=== PATIENT | female | born 1955 | race Caucasian/White ===

== ENCOUNTER 2018-02-15 06:06 | Inpatient (IN) ==
--- NOTE | 2018-02-14 15:16 | Anesthesia Evaluation PreOp ---
Date of Encounter: 02/15/18 Time of Encounter: 07:06 - Past History Planned Operation: left CEA Cardiac History: HTN, Hyperlipidemia, Cardiac Surgery (3 vessel CABG 2016), Other (PAD) Pulmonary History: Denies Any Significant HX PROGRAM DEVELOPER History: CVA, Other (retinopathy) Other Medical History: Renal (CKD stage 4), Diabetes Type II Anesthesia History: Past Anesthesia (CABG, tonsils, C/S x2), Problems (has severe emergence delirium, ususally requires restraints) Alcohol Use: none Drug use: none Medications and Allergies Acetaminophen [Tylenol] 1,000 mg PO Q6HR PRN #90 tablet 03/13/17 [Rx] Aspirin [Ecotrin] 325 mg PO DAILY 03/13/17 [History] Atorvastatin [Lipitor] 40 mg PO DAILY 03/13/17 [History] Carvedilol [Coreg] 6.125 mg PO BID 03/13/17 [History] Cholecalciferol (Vitamin D3) [Vitamin D3] 1,000 unit PO DAILY 03/13/17 [History] Gabapentin [Neurontin] 300 mg PO BID 03/13/17 [History] Glimepiride [Amaryl] 4 mg PO DAILY 03/13/17 [History] Latanoprost [Xalatan] 1 drop BOTH EYES DAILY 03/13/17 [History] Levothyroxine Sodium [Levoxyl] 175 mcg PO DAILY 03/13/17 [History] Lisinopril-HCTZ 20-12.5 [Prinzide 20-12.5] 1 tab PO DAILY 03/13/17 [History] Oxybutynin [Ditropan] 5 mg PO DAILY 03/13/17 [History] Pioglitazone [Actos] 15 mg PO DAILY 03/13/17 [History] SitaGLIPtin [Januvia] 100 mg PO DAILY 03/13/17 [History] Trazodone HCl 100 mg PO HS 03/13/17 [History] amLODIPine [Norvasc] 5 mg PO DAILY 03/13/17 [History] Cilostazol 50 mg PO BID 02/15/18 [History] Allergy/AdvReac Type Severity Reaction Status Date / Time Amoxicillin AdvReac Rash Verified 02/15/18 06:37 - Meds/Allergy Pre-op Review Medications Reviewed: Yes Allergies Reviewed: Yes Beta Blockers on Current Med List: Yes If Beta Blockers taken, Date/Time (Last Dose taken): today 329 Anesthesia Results - Labs Laboratory Tests 02/13/18 02/13/18 08:19 08:19 Hgb 11.3 L Hct 34.2 L Plt Count 217 Sodium 140 Potassium 4.2 BUN 49 H Creatinine 2.24 H - Imaging Additional studies: carotid studies: Findings: Left proximal ICA has a critical, 80-99% stenosis. Findings: Right carotid system has nonstenotic plaque. Anesthesia Exam Selected Entries 02/15/18 06:32 Blood Glucose* 108 H Temperature 98.2 F Pulse Rate 74 Respiratory Rate 18 Blood Pressure 152/86 O2 Sat by Pulse Oximetry 92 Weight: 95kg BMI 38 - HEENT Pupil (Motor): EOMI Mallampati: II Teeth: Missing Oral Opening: Greater than 3 - PROGRAM DEVELOPER LOC: Oriented PROGRAM DEVELOPER Motor: Normal RUE, Normal LUE, Normal RLE, Normal LLE, Normal Face PROGRAM DEVELOPER Sensory: Normal: RUE, LUE, RLE, LLE, Face - Cardiac Rhythm: Regular Murmur: None - Pulmonary Breath Sounds: bilateral Clear Respiratory Effort: Symmetrical Anesthesia Assess/Plan ASA Score: 3 Level of consciousness: Cooperative, Oriented Anesthetic Plan: General (with a-line) Monitoring Plan: Standard Monitors, A-Line Recovery Plan: PACU (agrees to GA and a-line)
[~2018-02-15 06:06] MED LIST: Vancomycin 1,000 MG, Sodium Chloride IRRigation 1,000 ML IR ONE
[2018-02-15] MEDS ORDERED: CeFAZolin Syr 2,000MG/20 ML 2,000 MG/20 ML SYRINGE IVPB ONE (06:34)
[2018-02-15] MEDS ORDERED: Albuterol 2.5 MG/3 ML NEBULIZER IH ONE (06:34)
[2018-02-15] MEDS ORDERED: *HR* FentaNYL (PF) 100 MCG/2 ML VIAL ONE (06:42)
[2018-02-15] MEDS ORDERED: *HR* Propofol 200 MG/20 ML VIAL IVP ONE ×2 (06:42→10:43)
[2018-02-15] MEDS ORDERED: *HR* Midazolam HCl 2 MG/2 ML VIAL ONE (06:42)
[2018-02-15] MEDS ORDERED: Lidocaine -MPF 2% 2 ML VIAL ONE (06:43)
[2018-02-15] MEDS ORDERED: *HR* Rocuronium Bromide 50 MG/5 ML VIAL ONE (06:43)
[2018-02-15] MEDS ORDERED: *HR* Succinylcholine 200 MG/10 ML VIAL IVP ONE (06:43)
[2018-02-15] MEDS ORDERED: Dexamethasone 4 MG/ML VIAL ONE (06:43)
[2018-02-15] MEDS ORDERED: Ondansetron 4 MG/2 ML VIAL ONE (06:43)
[2018-02-15] MEDS ORDERED: Ringers Solution, Lactated 1,000 ML IVC SCH (06:45)
[2018-02-15] MEDS ORDERED: *HR* PHENYLEPHRINE 1,000 MCG/10 ML SYRINGE IVP ONE (06:50)
[2018-02-15] MEDS ORDERED: *HR* Heparin 5,000 UNIT/ML VIAL ONE (06:51)
[2018-02-15] MEDS ORDERED: *HR* Remifentanil 1 MG VIAL IVP ONE ×2 (07:09→10:16)
[2018-02-15] MEDS ORDERED: Heparin 1,000 UNITS/500 mL 500 ML ONE (07:13)
[2018-02-15] MEDS ORDERED: Heparin 1,000 UNITS/500 mL 1,500 ML ONE (07:20)
[2018-02-15] MEDS ORDERED: Bupivacaine-MPF 0.25% 10 ML VIAL ONE (07:20)
[2018-02-15] MEDS ORDERED: Propofol 500 MG/50 ML INFUS..BTL ONE ×2 (07:25→09:59)
--- NOTE | 2018-02-15 07:32 | History & Physical Report ---
Date of Encounter: 02/15/18 Time of Encounter: 07:28 24 Hour HP Update - Instructions Instructions: If the History and Physical is less than 30 days old and was completed prior to A.M. admission and or procedure and has NOT been updated on calendar day of procedure please complete this update prior to performing procedure. - Update Patient reports changes in Medical Condition: No Changes in examination, assessment, or condition: No Changes in Medication: No Preop tests/diagnostics Reviewed: Yes Surgery Remains Indicated: Yes Consent for Planned Operative Procedure(s) Verified: Yes - Pre-Operative Checklist Preoperative Checklist Indicated: Yes Prophylactic Antibiotic Ordered: Yes (vancomycin due to risk of MRSA) Home Medications Include Beta Fadi: Yes Beta Fadi Taken Today (Day of Surgery): Yes Beta Fadi Taken Yesterday (Day Prior to Surgery): Yes Is VTE Prophylaxis Indicated?: Yes
[2018-02-15] MEDS ORDERED: Vancomycin 1,000 MG, Sodium Chloride IRRigation 1,000 ML IR ONE (07:45)
[2018-02-15] MEDS ORDERED: Dexmedetomidine HCl 400 MCG/100 ML MLS IVC ONE (09:18)
[2018-02-15] MEDS ORDERED: *HR* Labetalol 100 MG/20 ML MDV ONE (09:18)
[2018-02-15] MEDS ORDERED: *HR* Labetalol 20 MG/4 ML SYRINGE IVP PRN ×2 (09:37→12:38)
[2018-02-15] MEDS ORDERED: *HR* HYDROmorphone (PF) 1 MG/ML SYRINGE IVP PRN (09:37)
[2018-02-15] MEDS ORDERED: *HR* Promethazine 25 MG/ML VIAL IVP PRN ×2 (09:37→12:38)
--- NOTE | 2018-02-15 11:38 | Operative Note ---
Date of procedure: 02/15/18 Pre-op diagnosis: 80-99% Left internal carotid artery stenosis Post-op diagnosis: same Procedure: Left carotid endarterectomy with eversion technique. Complications: None Anesthesia: GETA Surgeon: Riccardo Soriano Was there an hospital medical assistant present: No Estimated blood loss (cc): 50 Specimen: Left carotid plaque Condition: stable Disposition: PACU Procedure in Detail: Indications: The patient is a 62-year-old female with a history of hypertension, hyperlipidemia, diabetes and chronic kidney disease. The patient was found have a left carotid bruit. She underwent a carotid duplex revealed an 80-99% left internal carotid artery stenosis. A left carotid endarterectomy was recommended to reduce her risk of future cerebrovascular accident. Procedure: The patient was identified in the preoperative area. The risks, benefits, and alternatives of the procedure were discussed and all questions were answered. The patient was then taken to the operating room and placed in supine position on the operating table. After the induction of general endotracheal anesthesia, the patient was cleaned and draped in normal sterile fashion. A longitudinal incision was made anterior to the left sternocleidomastoid muscle. Hemostasis was obtained via electrocautery. Through a process of blunt, sharp, and electrocautery dissection, the platysma was incised with electrocautery. The jugular vein was identified. The facial vein was dissected proximally. The vesel was then ligtated with 2-0 silk suture and divided. The jugular vein was then retracted to expose the carotid bifurcation. The patient received 2000 units of heparin intravenously at this time. Proximal dissection of the common and external carotid arteries were performed circumferentially. Dissection of the internal carotid was performed circumferentially. Vessels loops were passed around the internal and external carotid and an umbilical tape was passed from the common carotid artery. The patient received additional 3000 units of heparin intravenously. Additional anticoagulation was given throughout the procedure to maintain adequate anticoagulation. After waiting adequate time for the heparin to circulate, the vessels were occluded by applying tension to the loops of the internal and external carotid artery as well as clamping of the common carotid artery. The left internal carotid artery was noted to be redundant and tortuous. The vessel was completely mobilized. The left internal carotid artery was transected sharply at the carotid bifurcation. The internal carotid artery was everted and an endarterectomy was performed on the proximal internal carotid artery. The distal end point was inspected and no elevated flaps was noted. The vessel loop was released from the internal carotid artery and vigorous pulsatile retrograde flow was noted. A shunt was not placed due to sufficient retrograde perfusion. The arteriotomy is extended along the medial portion of the internal carotid artery. An incision was extended all the left portion of the greater bifurcation and common carotid artery. Using a dental freer and endarterectomy was performed on the common and external carotid artery. Endpoints were inspected and no elevated flaps were noted. The vessels were all flushed with heparinized saline. The internal carotid artery was anastomosed to the carotid bifurcation and common carotid artery with a running 6-0 Prolene. There is no tension, torsion or redundancy in the internal carotid artery. Prior to completing the anastomosis, each vessel was flushed and then reoccluded. Heparinized saline was infused into the lumen. The anastomosis was completed. Flow was restored in the external carotid artery, followed the common carotid artery, lastly the internal carotid artery was opened. A low resistance ar terialized signal was present within the internal carotid artery beyond the patch. Thrombin and Gelfoam were used to aid in hemostasis. Meticulous hemostasis was obtained throughout the wound with electrocautery. Platelet rich and platelet poor plasma were infused into the wounds. The sternocleidomastoid was reapproximated with interrupted 3-0 Vicryl. Platelet rich and platelet poor plasma were infused into the wound. A TLS drain was brought through a separate stab incision and sutured in place with 0 silk suture. The platysma was reapproximated with running 3-0 Vicryl. Local anesthetic was infused in the skin. A 3-0 Monocryl was used to reapproximate the skin. A sterile dressing was applied. The patient was extubated, taken to the recovery room in stable condition.
[2018-02-15] MEDS ORDERED: 0.9 % Sodium Chloride 1,000 ML IVC SCH (12:38)
[2018-02-15] MEDS ORDERED: Naloxone 0.4 MG/ML INJ IVP PRN (12:38)
[2018-02-15] MEDS ORDERED: Dextrose Gel 15 GM/37.5 ML TUBE PO PRN ×2 (12:38)
[2018-02-15] MEDS ORDERED: *HR* OxyCODONE Immed Rel 5 MG TABLET PO PRN (12:38)
[2018-02-15] MEDS ORDERED: *HR* Dextrose 50 % in Water (Syg) 50 ML SYRINGE IVP PRN (12:38)
[2018-02-15] MEDS ORDERED: D5% in Water 1,000 ML IVC PRN (12:38)
[2018-02-15] MEDS ORDERED: *HR* HYDROcodone/Acet 5/325 mg TABLET PO PRN (12:38)
[2018-02-15] MEDS ORDERED: OXYCODONE Oral CONC 10 MG/0.5 ML ORAL.SYG SL PRN ×2 (12:38)
[2018-02-15] MEDS ORDERED: Acetaminophen 325 MG TABLET PO PRN (12:38)
[2018-02-15] MEDS: Latanoprost 2.5 ML BOTTLE BOTH EYES SCH (13:00)
--- NOTE | 2018-02-15 13:21 | Anesthesia Evaluation Post Op ---
Date of Encounter: 02/15/18 Time of Encounter: 12:00 - Vital Signs Vital Signs: Selected Entries 02/15/18 11:59 Temperature 97.7 F Pulse Rate 72 Respiratory Rate 16 Blood Pressure 145/78 O2 Sat by Pulse Oximetry 95 - Lungs Lungs: Clear Ascult./Percussion - Cardiovascular Regular Rate - Mental Status Mental Status: Alert & Oriented, Answers Appropriately - Pain Pain Scale: 0 Pain Scale used: Numeric (1 - 10) - Nausea Vomiting Nausea Vomiting: Not Present - Hydration Hydration: Ice chips, Jim catheter Notes: 02/15/18 13:21 no neuro deficits, awoke without delirium - Discharge PostOp Status: Transfer Patient to floor
[2018-02-15] MEDS: Insulin LISPRO 300 UNITS/3 ML VIAL SQ SCH ×2 (15:34→17:09)
[2018-02-15] MEDS: amLODIPine 5 MG TABLET PO SCH (15:35)
[2018-02-15] MEDS: Lisinopril-HCTZ 20-12.5mg TABLET PO SCH (15:35)
[2018-02-15] MEDS: Cholecalciferol (D-3) 1,000 UNIT TABLET PO SCH (15:35)
[2018-02-15] MEDS: *HR* Metoprolol 5 MG/5 ML VIAL IVP SCH ×2 (15:35→17:11)
[2018-02-15] MEDS: Gabapentin 300 MG CAPSULE PO SCH ×2 (15:35→21:18)
[2018-02-15] MEDS: Aspirin Enteric Coated 325 MG Tablet PO SCH (15:40)
[2018-02-15] MEDS ORDERED: Insulin LISPRO 300 UNITS/3 ML VIAL SQ SCH (21:00)
[2018-02-15] MEDS ORDERED: traZODone 50 MG TABLET PO SCH (21:00)
[2018-02-16] MEDS: *HR* Metoprolol 5 MG/5 ML VIAL IVP SCH ×2 (00:08→05:08)
[2018-02-16] MEDS ORDERED: *HR* Heparin 5,000 UNIT/ML VIAL SQ SCH ×2 (06:00)
[2018-02-16 07:23] VITALS: BP 127/76
--- NOTE | 2018-02-16 07:36 | Discharge Summary ---
Date of Encounter: 02/16/18 Time of Encounter: 07:40 - Discharge Diagnosis (1) Carotid stenosis, left Status: Acute - Hospital Course Hospital course: Ms. River is a 62 year old female - Time Spent with Patient Total time spent providing and/or coordinating discharge services: - Discharge Medications Prescriptions: OxyCODONE/APAP 5/325 [Percocet 5/325 MG] 1 each PO Q6HR PRN 3 Days #12 tablet PRN Reason: POSTOPERATIVE PAIN Home Medications: Acetaminophen [Tylenol] 1,000 mg PO Q6HR PRN #90 tablet 03/13/17 [Rx] Aspirin [Ecotrin] 325 mg PO DAILY 03/13/17 [History] Atorvastatin [Lipitor] 40 mg PO DAILY 03/13/17 [History] Carvedilol [Coreg] 6.125 mg PO BID 03/13/17 [History] Cholecalciferol (Vitamin D3) [Vitamin D3] 1,000 unit PO DAILY 03/13/17 [History] Gabapentin [Neurontin] 300 mg PO BID 03/13/17 [History] Latanoprost [Xalatan] 1 drop BOTH EYES HS 03/13/17 [History] Levothyroxine Sodium [Levoxyl] 175 mcg PO DAILY 03/13/17 [History] Lisinopril-HCTZ 20-12.5 [Prinzide 20-12.5] 1 tab PO DAILY 03/13/17 [History] Pioglitazone [Actos] 15 mg PO DAILY 03/13/17 [History] Trazodone HCl 100 mg PO HS 03/13/17 [History] amLODIPine [Norvasc] 5 mg PO DAILY 03/13/17 [History] Cilostazol 50 mg PO BID 02/15/18 [History] Glimepiride [Amaryl] 2 mg PO DAILY 02/15/18 [History] Oxybutynin Chloride [Ditropan Xl] 5 mg PO 02/15/18 [History] Sitagliptin Phosphate [Januvia] 50 mg PO DAILY 02/15/18 [History] OxyCODONE/APAP 5/325 [Percocet 5/325 MG] 1 each PO Q6HR PRN 3 Days #12 tablet 02/16/18 [Rx] Allergies/Adverse Reactions: Allergy/AdvReac Type Severity Reaction Status Date / Time Amoxicillin AdvReac Rash Verified 02/15/18 13:33 Date of admission: 02/15/18 12:26 Primary care physician: Annie Merritt MD Procedure(s) Performed: Left carotid endarterectomy Discharging clinician: Riccardo Soriano Anticipated date of discharge: 02/16/18 Exam Vital Signs, Last 4 Hours Temp Pulse Resp BP Pulse Ox 02/16/18 07:20 97.5 F L 69 16 127/76 97 General: Present: Conversant, No Apparent Distress HEENT: Present: Trachea midline, Pupils equal Neck: Present: Other (Incision clean, dry and intact without erythema or drainage, no hematoma, no pulsatile mass, no fluctuance ). Absent: JVD Cardiac: Present: Reg Rate and Rhythm Lungs: Present: Normal Breath Sounds Neuro: Present: Alert and responsive, No focal deficits noted Abdomen: Present: Soft Vascular: Present: Normal capillary refill. Absent: Cyanosis, Edema Skin: Present: No rashes noted on visualized skin - Patient Status Disposition: Home, Self-Care Condition: Good Functional capacity at discharge: independent ambulation Overall status at discharge: patient is back to baseline - Discharge Instructions Follow Up With: Riccardo Soriano MD [Partnered Physician] - 03/19/18 1:00 pm Annie Merritt MD [Primary Care Provider] - 02/27/18 10:00 am Additional Instructions: May remove bandage and shower on 02/17/2018. Wash wound gently and pat to dry. No driving for [address] Soriano [phone] with questions or concerns. - Diet and Activity Activity: increase activity as tolerated Diet: advance to your usual diet
[2018-02-16] MEDS: Insulin LISPRO 300 UNITS/3 ML VIAL SQ SCH (08:23)
[2018-02-16] MEDS: Gabapentin 300 MG CAPSULE PO SCH (08:24)
[2018-02-16] MEDS: Aspirin Enteric Coated 325 MG Tablet PO SCH (08:24)
[2018-02-16] MEDS: amLODIPine 5 MG TABLET PO SCH (08:24)
[2018-02-16] MEDS: Lisinopril-HCTZ 20-12.5mg TABLET PO SCH (08:24)
[2018-02-16] MEDS: Cholecalciferol (D-3) 1,000 UNIT TABLET PO SCH (08:25)
[2018-02-16] MEDS: Latanoprost 2.5 ML BOTTLE BOTH EYES SCH (08:26)
== END 2018-02-16 10:00 | disposition home or self-care (01) | DRG 38 ==
LOC: SAMDAY 06:06 → 2NNU 12:26
PROVIDERS: ADMIT Surgery; ATTEND Surgery